=== PATIENT | male | born 1975 | race Asian ===

== ENCOUNTER 2016-03-23 10:11 | Outpatient (CLI) | payer OTHER ==
[~2016-03-23 10:11] MED LIST: AMIT10TA21 PO; IBUPROFEN200 MG PO
== END 2016-03-23 19:48 | disposition home or self-care (01) ==
LOC: RAD 10:11
DX: M54.2 Cervicalgia (principal); M25.532 Pain in left wrist; M19.032 Primary osteoarthritis, left wrist

== ENCOUNTER 2017-10-30 11:32 | Emergency (ER) | payer OTHER ==
[~2017-10-30] VITALS: Ht 172.7 cm; Wt 89.8 kg
[2017-10-30 13:27] VITALS: BP 132/89; TEMP 98.1
== END 2017-10-30 13:29 | disposition home or self-care (01) ==
LOC: ED 11:32
DX: M19.012 Primary osteoarthritis, left shoulder (principal); M75.82 Other shoulder lesions, left shoulder
CPT/HCPCS: 85651; 99283

== ENCOUNTER 2017-12-26 11:27 | Outpatient (CLI) | payer OTHER | END 2017-12-26 11:33 | disposition short-term general hospital (02) | LOC: AMB 11:27 | DX: M25.519 Pain in unspecified shoulder (principal); V89.2XXA Person injured in unspecified motor-vehicle accident, traffic, initial encounter; Y93.89 Activity, other specified; Y92.89 Other specified places as the place of occurrence of the external cause | CPT/HCPCS: A0425; A0429 ==

== ENCOUNTER 2017-12-26 11:34 | Emergency (ER) | payer OTHER ==
[~2017-12-26] VITALS: Ht 172.7 cm; Wt 93.0 kg
[2017-12-26 11:34] VITALS: TEMP 98.1
[2017-12-26 12:15] VITALS: BP 127/85
== END 2017-12-26 12:18 | disposition home or self-care (01) ==
LOC: ED 11:36
DX: M25.512 Pain in left shoulder (principal); M19.012 Primary osteoarthritis, left shoulder; V49.40XA Driver injured in collision with unspecified motor vehicles in traffic accident, initial encounter
CPT/HCPCS: 99282

== ENCOUNTER 2018-01-05 11:00 | Inpatient (IN) | payer OTHER ==
[~2018-01-05] VITALS: Ht 172.7 cm; Wt 90.5 kg
[2018-01-05 11:04] VITALS: BP 141/101; TEMP 97.2
[2018-01-05 12:18] LABS: PLATELET COUNT 288 K/uL (142-355)
[2018-01-05 12:27] LABS: POTASSIUM 3.8 mmol/L (3.6-5.2); SODIUM 138 mmol/L (136-145)
[2018-01-05 13:00] VITALS: BP 130/98
[2018-01-05 15:00] VITALS: BP 130/97
[2018-01-05 16:36] VITALS: BP 144/95; TEMP 98.7; Ht 172.7 cm; Wt 90.5 kg
[2018-01-05 20:00] VITALS: BP 144/79; TEMP 99.2
[2018-01-06 00:23] VITALS: BP 127/71; TEMP 98.3
[2018-01-06 04:29] VITALS: BP 116/75; TEMP 97.6
[2018-01-06 06:55] LABS: POTASSIUM 3.8 mmol/L (3.6-5.2)
[2018-01-06 08:00] VITALS: BP 114/70; TEMP 97.8
[2018-01-06 12:19] VITALS: BP 120/67; TEMP 97.9
[2018-01-06 16:06] VITALS: BP 122/70; TEMP 97.8
[2018-01-06 20:00] VITALS: BP 118/59; TEMP 98.5
[2018-01-07] VITALS: BP 121/88; TEMP 98.7
[2018-01-07 04:00] VITALS: BP 115/7; TEMP 98.7
[2018-01-07 06:39] LABS: PLATELET COUNT 195 K/uL (142-355)
[2018-01-07 07:02] LABS: POTASSIUM 3.8 mmol/L (3.6-5.2)
[2018-01-07 08:02] VITALS: BP 123/75; TEMP 98
== END 2018-01-07 11:00 | disposition home or self-care (01) | DRG 558 ==
LOC: ED 11:00 → MED/SURG 15:20
DX: M62.82 Rhabdomyolysis (principal); F41.8 Other specified anxiety disorders
CPT/HCPCS: 36415; 36600; 80048; 80053; 80307; 81000; 82550; 82553; 82805; 83735; 84484; 85027; 93005; 96361; 96365; 99284; J2930; J7120

== ENCOUNTER 2018-08-12 17:38 | Outpatient (CLI) | payer OTHER | END 2018-08-12 17:41 | disposition short-term general hospital (02) | LOC: AMB 17:38 | DX: R53.83 Other fatigue (principal); R46.4 Slowness and poor responsiveness; T50.901A Poisoning by unspecified drugs, medicaments and biological substances, accidental (unintentional), initial encounter | CPT/HCPCS: A0425; A0427 ==